=== PATIENT | female | born 1990 | race Hispanic/Latino ===

== ENCOUNTER 2017-12-03 20:34 | Emergency (ER) | payer MEDICAID, OTHER ==
[2017-12-03] MEDS ORDERED: KETOROLAC TROMETHAMINE 60 MG/2 ML VIAL ONE (21:11)
[2017-12-03] MEDS ORDERED: ACETAMINOPHEN EXTRA STRENGTH 500 MG TABLET ONE (21:12)
[2017-12-03] MEDS ORDERED: DIAZEPAM 5 MG TABLET ONE (21:12)
[2017-12-03] MEDS ORDERED: LIDOCAINE 5% TOPICAL PATCH TP ONE (21:12)
[2017-12-03 21:32] LABS: APPEARANCE,URINE Clear (CLEAR); BILIRUBIN,URINE Negative (NEGATIVE); COLOR,URINE Yellow (YELLOW); GLUCOSE, URINE (UA) Negative (NEGATIVE); KETONES,URINE Negative (NEGATIVE); LEUKOCYTE ESTERASE ,URINE Negative (NEGATIVE); NITRATE,URINE Negative (NEGATIVE); OCCULT BLOOD,URINE Negative (NEGATIVE); PROTEIN,URINE Negative (NEGATIVE)
[2017-12-03 21:43] LABS: HCG,QUAL RESULT NEGATIVE (NEGATIVE)
== END 2017-12-03 23:05 | disposition home or self-care (01) ==
LOC: EDH 20:34
DX: M54.16 Radiculopathy, lumbar region (principal); G89.29 Other chronic pain; F43.10 Post-traumatic stress disorder, unspecified
CPT/HCPCS: 81003; 81025; 96372; 99284; J1885

== ENCOUNTER 2018-10-11 21:30 | Emergency (ER) | payer OTHER ==
[2018-10-11 23:09] LABS: APPEARANCE,URINE Clear (CLEAR); BILIRUBIN,URINE Negative (NEGATIVE); COLOR,URINE Yellow (YELLOW); GLUCOSE, URINE (UA) Negative (NEGATIVE); KETONES,URINE Negative (NEGATIVE); LEUKOCYTE ESTERASE ,URINE Small (NEGATIVE); NITRATE,URINE Negative (NEGATIVE); OCCULT BLOOD,URINE Moderate (NEGATIVE); PROTEIN,URINE Negative (NEGATIVE)
[2018-10-11 23:18] LABS: HCG,QUAL RESULT POSITIVE (NEGATIVE)
[2018-10-11 23:20] LABS: BACTERIA,URINE Few /HPF (None Seen)
== END 2018-10-12 00:09 | disposition home or self-care (01) ==
LOC: EDH 21:30
DX: O26.891 Other specified pregnancy related conditions, first trimester (principal); M54.5 Low back pain; G89.29 Other chronic pain; F41.9 Anxiety disorder, unspecified; F43.10 Post-traumatic stress disorder, unspecified; Z3A.01 Less than 8 weeks gestation of pregnancy
CPT/HCPCS: 81001; 81025